=== PATIENT | female | born 1980 | race Caucasian/White ===

== ENCOUNTER 2017-01-04 13:18 | Emergency (ER) | payer MEDICAID ==
[~2017-01-04] VITALS: Ht 152.4 cm; Wt 89.0 kg
[~2017-01-04 13:18] MED LIST: CHLO.12%30 SSP; IBUP800T23 PO
[2017-01-04 13:21] VITALS: BP 132/93; PULSE 100; RESP 17; TEMP 98.4; O2SAT 96
[2017-01-04] MEDS ORDERED: SODIUM CHLOR 0.9% 1000 ML INJ 1,000 ML IV ONE (13:41)
[2017-01-04] MEDS ORDERED: MORPHINE SULFATE 4 MG/ML INJ IV PUSH ONE (13:45)
[2017-01-04] MEDS ORDERED: SODIUM CHLORIDE 0.9% FLUSH 5 ML FLUSH IVF PRN (13:45)
[2017-01-04] MEDS ORDERED: diphenhydrAMINE HCL 50 MG/ML VIAL IVP ONE (13:45)
[2017-01-04] MEDS ORDERED: ACETAMINOPHEN 325 MG TAB PO ONE (13:45)
[2017-01-04] MEDS ORDERED: PROCHLORPERAZINE INJ 10 MG/2 ML VIAL IVP ONE (13:45)
--- NOTE | 2017-01-04 14:34 | PD ---
HPI Chief Complaint: Headache Time Seen by Provider: 13:29 Travel History International Travel<30 days: No Contact w/Intl Traveler<30days: No Traveled to known affect area: No History of Present Illness HPI The patient is a 36-year-old female who presents to the emergency department for headache. The patient states her headache started yesterday while watching TV. The headache is located over the frontal aspect of her forehead, occasionally radiates to the neck, is associated with photophobia, nausea, and vomiting. The patient denies any posterior neck pain or visual acuity changes. The patient denies any thunderclap quality to the headache and denies any history of subarachnoid hemorrhage. The patient denies any assisted fever, chills, or sweats. The patient denies any weakness, numbness, tingling, or paresthesias of the upper or lower extremities. Symptoms are moderate, there are no alleviating or exacerbating factors. The patient did not take any medications for her headache prior to arrival. PFSH Past Medical History Hx Anticoagulant Therapy: No Cardiovascular Problems: No Chemotherapy: No Cerebrovascular Accident: No Diabetes: No Diminished Hearing: No Respiratory: No Immunizations Current: Yes ?: Unknown LMP: 11/28/2016 Past Surgical History Abdominal Surgery: Yes (PARTIAL PANCREAS REMOVAL PER PT. ) Section: Yes Cholecystectomy: Yes Hysterectomy: No Other Surgery: Yes (WHIPPLE PROCEDURE) Social History Alcohol Use: No Tobacco Use: No Substance Use: No Allergies-Medications (Allergen,Severity, Reaction): Coded Allergies: Ativan (Verified Adverse Reaction, Intermediate, AGITATION, 07/26/16) Reported Meds & Prescriptions Reported Meds & Active Scripts Active Review of Systems Except as stated in HPI: all other systems reviewed are Neg Eyes: Positive: Photophobia HENT: Positive: Headaches, No: Neck Pain Gastrointestinal: Positive: Nausea, Vomiting, No: Abdominal Pain Neurologic: Positive: Headache, No: Paresthesia, Sensory Disturbance Physical Exam Narrative GENERAL: Awake, alert, pleasant 36-year-old female who appears her stated age and is in no acute respiratory distress. SKIN: Warm and dry. HEAD: Atraumatic. Normocephalic. EYES: Pupils equal and round. Pupils are 3 mm bilateral and reactive. EOMs are intact. Patient is able to see fingers at a distance of 2 feet without difficulty. ENT: No nasal bleeding or discharge. Mucous membranes pink and moist. NECK: Trachea midline. No JVD. No meningeal signs. Full range of motion with flexion, extension, and rotation of the neck. CARDIOVASCULAR: Regular rate and rhythm. No murmur appreciated. RESPIRATORY: No accessory muscle use. Clear to auscultation. Breath sounds equal bilaterally. GASTROINTESTINAL: Abdomen soft, non-tender, nondistended. No rebound tenderness. MUSCULOSKELETAL: No obvious deformities. No clubbing. No cyanosis. No edema. NEUROLOGICAL: Awake and alert. No obvious cranial nerve deficits. Motor grossly within normal limits. Normal speech. Nonfocal. PSYCHIATRIC: Appropriate mood and affect; insight and judgment normal. Data Data Last Documented VS Vital Signs Date Time Temp Pulse Resp B/P Pulse Ox O2 Delivery O2 Flow Rate FiO2 01/04/17 15:13 18 98 Room Air 01/04/17 15:13 80 133/78 01/04/17 13:21 98.4 Orders Ecg Monitoring (01/04/17 13:41) Iv Access Insert/Monitor (01/04/17 13:41) Oximetry (01/04/17 13:41) Sodium Chloride 0.9% Flush (Ns Flush) (01/04/17 13:45) Acetaminophen (Tylenol) (01/04/17 13:45) Prochlorperazine Inj (Compazine Inj) (01/04/17 13:45) Diphenhydramine Inj (Benadryl Inj) (01/04/17 13:45) Sodium Chlor 0.9% 1000 Ml Inj (Ns 1000 M (01/04/17 13:41) Morphine Inj (Morphine Inj) (01/04/17 13:45) Ed Urine Pregnancytest Poc (01/04/17 13:50) Ct Brain W/O Iv Contrast(Rout) (01/04/17 ) Ketorolac Inj (Toradol Inj) (01/04/17 15:00) MDM Medical Decision Making Medical Screen Exam Complete: Yes Emergency Medical Condition: Yes Medical Record Reviewed: Yes Interpretation(s) CT of the brain reveals no acute intracranial abnormality. Differential Diagnosis Differential diagnosis includes migraine, tension headache, cluster headache, glaucoma, subarachnoid hemorrhage, intracranial hemorrhage, intracranial tumor. Narrative Course IV was established, bedside test was obtained which was negative, and the patient was placed on cardiac telemetry monitoring and continuous pulse oximetry monitoring. CT of the brain was negative. The patient was administered Compazine, Benadryl, morphine, and IV fluids. CT of the brain was negative, therefore, the patient was also administered Toradol 30 mg intravenously. The patient was reevaluated at 3:30 PM, her headache had resolved. The patient will be discharged home, Fioricet as needed for pain. Diagnosis Primary Impression: Cephalgia Qualified Code: R51 - Nonintractable headache, unspecified chronicity pattern , unspecified headache type Patient Instructions: General Instructions Additional Instructions: Medications as directed. Follow-up with a primary physician. No driving for the rest of the day. Med/Other Pt SpecificInfo: Prescription(s) given Scripts Jaaqanvjlr-Vwbywzopnqgif-Evczetxf (Fioricet)50-300-40 Mg Cap1 Cap PO Q4H PRN ( HEADACHE) #12 CAP Ref 0 Prov:Tevin Rivera MD 01/04/17 Disposition: 01 DISCHARGE HOME Condition: Stable Tevin Rivera MD Jan 04, 2017 14:34
--- NOTE | 2017-01-04 14:49 | RADHPO ---
EXAM DATE/TIME: 01/04/2017 14:31 [facility] COMPARISON: No previous studies available for comparison. INDICATIONS : Headache since last night with nausea and vomiting. RADIATION DOSE: 61.25 CTDIvol (mGy) MEDICAL HISTORY : None SURGICAL HISTORY : Cholecystectomy. section. ENCOUNTER: Initial ACUITY: 2 days PAIN SCALE: 3/10 LOCATION: cranial TECHNIQUE: Multiple contiguous axial images were obtained of the head. Using automated exposure control and adj ustment of the mA and/or kV according to patient size, radiation dose was kept as low as reasonably a chievable to obtain optimal diagnostic quality images. FINDINGS: CEREBRUM: The ventricles are normal for age. No evidence of midline shift, mass lesion, hemorrhage or acute in farction. No extra-axial fluid collections are seen. POSTERIOR FOSSA: The cerebellum and brainstem are intact. The 4th ventricle is midline. The cerebellopontine angle i s unremarkable. EXTRACRANIAL: The visualized portion of the orbits is intact. SKULL: The calvaria is intact. No evidence of skull fracture. CONCLUSION: No acute intracranial abnormality. Nikita Simmons MD on January 04, 2017 at 14:47 Board Certified Radiologist. This report was verified electronically.
[2017-01-04] MEDS ORDERED: KETOROLAC TROMETHAMINE 30 MG/ML (IVP) VIAL IV PUSH ONE (15:00)
[2017-01-04 15:13] VITALS: BP 133/78; PULSE 80; RESP 18; O2SAT 98
[2017-01-04 15:37] VITALS: RESP 18
[2017-01-04] MEDS ORDERED: BUTA1CAP PO (15:37)
== END 2017-01-04 15:45 | disposition home or self-care (01) ==
LOC: PHED 13:18
DX: R51 Headache (principal)
CPT/HCPCS: 70450; 84703; J0780; J1200; J1885; J2270; J7030; 96361; 96374; 96375